=== PATIENT | female | born 1975 | race Two or more races ===

== ENCOUNTER 2022-10-23 11:14 | Outpatient (RCR) | payer MEDICARE, MEDICAID, SELFPAY ==
[2022-10-23 11:15] VITALS: BP 143/85; PULSE 99; RESP 18; TEMP 36.7; O2SAT 98
[2022-10-23 12:02] LABS: HCG Qualitative Urine* NEGATIVE (NEGATIVE)
[2022-10-23] MEDS: 0.9 % SODIUM CHLORIDE 250 ML IV (12:15)
[2022-10-23] MEDS: DIPHENHYDRAMINE HCL 50 MG/ML (1ML) VIAL 25 MG IV (12:15)
[2022-10-23] MEDS: METHYLPREDNISOLONE SOD SUCC PF 125 MG/2 ML VIAL 60 MG IVP (12:16)
[2022-10-23] MEDS: UBLITUXIMAB XIIY IV (12:45)
[2022-10-23] MEDS: SODIUM CHLORIDE 0.9% IV (12:45)
--- NOTE | 2022-10-23 13:17 | PC.NURSE ---
Patient received premedications as ordered, and her Brumivi is infusing well without any reactions. vitals remain stable, we will continue to monitor.
[2022-10-23 13:22] VITALS: BP 104/66; PULSE 67; RESP 18; O2SAT 100
--- NOTE | 2022-10-23 14:27 | PC.NURSE ---
Addendum entered by Chantel Urena 10/23/22 15:00: 14:59: Patient tolerated reduced rate of 20ml/hr, I increased her rate up to 35ml/hr per Brumivi infusion recommendations, she is tolerating this well and denie any issues at this time. Her vitals remain stable. Original Note: At 1426 patient started to complain of chills, vitals were obtained and stable, infusion was stopped and saline flushing. After 10 minutes, I reduced her infusion rate back to 20ml/hr and she is tolerating well.
[2022-10-23 14:28] VITALS: BP 116/69; PULSE 86; RESP 18; TEMP 37.3; O2SAT 97
--- NOTE | 2022-10-23 18:14 | PC.NURSE ---
Patient completed Brumivi infusion without any further chills, she believes she just got cold during her infusion and did not have any further s/s of infusion reaction. She was discharged home.
== END 2022-10-24 23:59 | disposition home or self-care (01) ==
LOC: INF 11:14
PROVIDERS: Visit Provider Psychiatry & Neurology Neurology
DX: G35 Multiple sclerosis (principal)
CPT/HCPCS: 84703; 96365; 96366; 96374; 96375; J2329; J2930

== ENCOUNTER 2022-11-06 07:41 | Outpatient (RCR) | payer MEDICARE, MEDICAID, SELFPAY ==
[2022-11-06] MEDS: METHYLPREDNISOLONE SOD SUCC PF 125 MG/2 ML VIAL 60 MG IVP (12:04)
[2022-11-06] MEDS: DIPHENHYDRAMINE HCL 50 MG/ML (1ML) VIAL 25 MG IV (12:10)
--- NOTE | 2022-11-06 12:45 | PC.NURSE ---
1240 briumvi initated 450mg/250 ml iv inital rate 100 mg per hr for 1st 30 mins. instruted to call for s/s of reaction ie itching shortness of breath chest pain wheezing etc. verbalizes understanding (patient refused tylenol 30mins before.
--- NOTE | 2022-11-06 14:21 | PC.NURSE ---
1330 infusion completed, tolerated well without ay adverse reactions. IV to saline lock. 1410 no s/s of any adverse reactions. IV site dc'd, catheter intact. released ambulatory
== END 2022-11-23 23:59 | disposition home or self-care (01) ==
LOC: INF 07:41
PROVIDERS: Visit Provider Psychiatry & Neurology Neurology
DX: G35 Multiple sclerosis (principal)
CPT/HCPCS: 96365; J2329; J2930

== ENCOUNTER 2023-05-16 07:24 | Outpatient (RCR) | payer MEDICARE, MEDICAID, SELFPAY ==
[2023-05-16 13:29] LABS: HCG Qualitative Urine* NEGATIVE (NEGATIVE)
[2023-05-16 13:42] VITALS: BP 159/90; PULSE 95; RESP 18; TEMP 37.1; O2SAT 95
[2023-05-16] MEDS: DIPHENHYDRAMINE HCL 25 MG CAPSULE PO (13:49)
[2023-05-16] MEDS: METHYLPREDNISOLONE SOD SUCC PF 40 MG/ML VIAL 60 MG IVP (14:02)
[2023-05-16] MEDS: SODIUM CHLORIDE 0.9% IV (14:05)
[2023-05-16] MEDS: UBLITUXIMAB XIIY IV (14:05)
--- NOTE | 2023-05-16 14:49 | PC.NURSE ---
1405 iv infusion initiated at 100 ml hr after taking iv solumedrol, and oral benadryl,
--- NOTE | 2023-05-16 15:00 | PC.NURSE ---
1435 after 30 minutes of infusion, was going to increase to 400 ml as ordered, patient voiced her throat felt itchy, denies any other symptoms, lungs clear, kept infusion at 100 ml hr. 1450 patient states throat doesn't feel itchy at this time, eating lunch, watching TV 1500 denies any itching or symptoms of reacction, increase rate to 150 ml hr.
--- NOTE | 2023-05-16 15:16 | PC.NURSE ---
1515 tolerating 150 ml hr, increased to 200 ml hr.
--- NOTE | 2023-05-16 15:46 | PC.NURSE ---
1345 briumvi infusion completed, line flushed with NS, 1350 Lungs clear, denies itching in throat or any s/s of reaction. IV Dc'd. cottonball and coban applied to site. Labs
[2023-05-17 05:08] LABS: Immunoglobulin G, Qn 962 mg/dL (586-1602)
== END 2023-05-25 23:59 | disposition home or self-care (01) ==
LOC: INF 07:24
PROVIDERS: Visit Provider Psychiatry & Neurology Neurology
DX: G35 Multiple sclerosis (principal)
CPT/HCPCS: 36415; 82784; 84703; 96365; 96366; J2329; J2920

== ENCOUNTER 2023-11-20 07:42 | Outpatient (RCR) | payer MEDICARE, MEDICAID, SELFPAY ==
[2023-11-20 13:30] VITALS: BP 150/86; PULSE 96; TEMP 37.2; O2SAT 98
[2023-11-20 13:42] LABS: HCG Qualitative Urine* NEGATIVE (NEGATIVE); Internal Control Within Normal Limits
[2023-11-20] MEDS: METHYLPREDNISOLONE SOD SUCC PF 125 MG/2 ML VIAL 60 MG IV (14:05)
[2023-11-20] MEDS: DIPHENHYDRAMINE HCL 50 MG/ML VIAL 25 MG IV (14:05)
[2023-11-20] MEDS: IBUPROFEN 400 MG TABLET PO (14:07)
[2023-11-20] MEDS: SODIUM CHLORIDE 0.9% IV (14:20)
[2023-11-20] MEDS: UBLITUXIMAB XIIY IV (14:20)
--- NOTE | 2023-11-20 14:44 | PC.NURSE ---
1330: Pt. to [facility] amb. for Briumvi treatment. Relays going to lab for preg. test prior to arrival. Seated in recliner. VSS. IV initiated, see documentation. 1405: Pre-meds administered as ordered. Menu provided. 1420: Briumvi infusion initiated at 100ML/HR for 30 mins. as instructed. Will monitor closely for adverse reaction. 1440: Lunch tray provided. Pt. denies needs or c/o.
[2023-11-20 15:05] VITALS: BP 155/70; PULSE 81; TEMP 36.6; O2SAT 94
--- NOTE | 2023-11-20 15:15 | PC.NURSE ---
1450: Briumvi increased to 400ML/hr. Instructed pt. to inform this RN of any s&s of adverse reaction. Pt. relays understanding. 1405: Pt. states feeling like a tiny scratchy throat . States that it's barely there . Briumvi slowed down to 200mL/hr. Will cont. to monitor closely. 1410: Pt. already relays scratchy throat gone. Will cont. infusion at 200ML/hr
--- NOTE | 2023-11-20 15:32 | PC.NURSE ---
1425: Cont. to deny s&s of adverse reaction. Denies scratchy throat.
[2023-11-20 15:42] VITALS: BP 122/74; PULSE 80; TEMP 36.6; O2SAT 97
--- NOTE | 2023-11-20 15:45 | PC.NURSE ---
1542: Infusion completed without s&s of reaction. IV d/c'd, pressure to site. Pt. d/c'd amb. to home.
[2023-11-21 08:12] LABS: Immunoglobulin G, Qn 995 mg/dL (586-1602)
== END 2023-11-24 23:59 | disposition home or self-care (01) ==
LOC: INF 07:42
PROVIDERS: Visit Provider Psychiatry & Neurology Neurology
DX: G35 Multiple sclerosis (principal)
CPT/HCPCS: 36415; 82784; 84703; 96365; 96375; J1200; J2329; J2919

== ENCOUNTER 2024-05-13 07:37 | Outpatient (RCR) | payer OTHER, MEDICAID, SELFPAY ==
[2024-05-13 13:59] LABS: HCG Qualitative Urine* NEGATIVE (NEGATIVE); Internal Control Within Normal Limits
[2024-05-13 14:00] VITALS: BP 160/90; PULSE 95; TEMP 37.1; O2SAT 95
[2024-05-13] MEDS: METHYLPREDNISOLONE SOD SUCC PF 125 MG/2 ML VIAL 60 MG IV (14:09)
[2024-05-13] MEDS: DIPHENHYDRAMINE HCL 25 MG CAPSULE PO (14:09)
[2024-05-13] MEDS: IBUPROFEN 600 MG TABLET PO (14:09)
[2024-05-13] MEDS: UBLITUXIMAB XIIY IV (14:30)
[2024-05-13] MEDS: SODIUM CHLORIDE 0.9% IV (14:30)
--- NOTE | 2024-05-13 14:34 | PC.NURSE ---
1409: Pre-meds given at this time as ordered. 1430: IV Briumvi infusion initiated at this time. Instructed pt. to inform this RN of s&s of adverse reactions. Pt. relays understanding.
--- NOTE | 2024-05-13 15:09 | PC.NURSE ---
1508: Briumvi infusion rate decreased at this time due to pt. feeling scratchy throat . Will cont. to monitor closely. IV site clear. Up to bathroom 1310: Food tray provided.
--- NOTE | 2024-05-13 15:28 | PC.NURSE ---
1528: Relays feeling in throat in gone. Infusion increased to 300cc/hr. Eating food without c/o difficulty swallowing or nausea
== END 2024-05-17 10:20 | disposition home or self-care (01) ==
LOC: INF 07:37
PROVIDERS: Visit Provider Psychiatry & Neurology Neurology
DX: G35 Multiple sclerosis (principal)
CPT/HCPCS: 84703; 96365; 96375; J2329; J2919

== ENCOUNTER 2024-10-29 13:42 | Outpatient (RCR) | payer OTHER, MEDICAID, SELFPAY ==
[2024-10-29 13:47] VITALS: BP 162/90; PULSE 97; TEMP 36.6; O2SAT 98
[2024-10-29 13:52] LABS: HCG Qualitative Urine* NEGATIVE (NEGATIVE)
[2024-10-29] MEDS: METHYLPREDNISOLONE SOD SUCC PF 125 MG/2 ML VIAL 60 MG IVP (14:00)
[2024-10-29] MEDS: IBUPROFEN 600 MG TABLET PO (14:00)
[2024-10-29] MEDS: DIPHENHYDRAMINE HCL 25 MG CAPSULE PO (14:00)
[2024-10-29] MEDS: SODIUM CHLORIDE 0.9% IV (14:13)
[2024-10-29] MEDS: UBLITUXIMAB XIIY IV (14:13)
--- NOTE | 2024-10-29 14:36 | PC.NURSE ---
1413: IV Briumvi initiated at this time. Lunch tray ordered. 1436: Lunch tray provided. Denies c/o adverse symptoms or reactions at this time.
--- NOTE | 2024-10-29 14:57 | PC.NURSE ---
1450: Pt eating lunch. Relays a slight tingling to back of throat. Denies difficulty breathing or swallowing. IV rate decreased to 175ml/hr. Will monitor closely. 1457: Pt reports tingling sensation to throat is gone. Denies difficulty breathing or swallowing.
[2024-10-29 15:43] VITALS: BP 144/78; PULSE 74; TEMP 36.6; O2SAT 98
== END 2024-11-23 23:59 | disposition home or self-care (01) ==
LOC: INF 13:42
PROVIDERS: Visit Provider Psychiatry & Neurology Neurology
DX: G35 Multiple sclerosis (principal)
CPT/HCPCS: 84703; 96365; 96375; J2329; J2919